=== PATIENT | male | born 1980 | race African-American/Black ===

== ENCOUNTER 2018-07-29 21:39 | Emergency (ER) | payer SELFPAY ==
[~2018-07-29] VITALS: Ht 182.9 cm; Wt 87.1 kg
[2018-07-29 21:54] VITALS: BP 86/46
--- NOTE | 2018-07-29 21:57 | ED.ADGEN ---
Adult General Chief Complaint Chief Complaint Brought by ambulance here for agitation HPI HPI 38 years old male presented to the emergency department by ambulance EMS team stated police called them because he was agitated upon arrival he was very calm and offered him to be evaluated in the emergency department he agreed to come he denies any symptoms. No headache no blurry vision no weakness no numbness no agitation answered all questions Review of Systems Review of Systems Constitutional: Denies fever or chills [] Eyes: Denies change in visual acuity, redness, or eye pain [] HENT: Denies nasal congestion or sore throat [] Respiratory: Denies cough or shortness of breath [] Cardiovascular: No additional information not addressed in HPI [] GI: Denies abdominal pain, nausea, vomiting, bloody stools or diarrhea [] : Denies dysuria or hematuria [] Musculoskeletal: Denies back pain or joint pain [] Integument: Denies rash or skin lesions [] Neurologic: Denies headache, focal weakness or sensory changes [] Endocrine: Denies polyuria or polydipsia [] All other systems were reviewed and found to be within normal limits, except as documented in this note. Allergies Allergies Allergies Coded Allergies Type Severity Reaction Last Updated Verified No Known Drug Allergies 07/29/18 No Physical Exam Physical Exam Constitutional: Well developed, well nourished, no acute distress, non-toxic appearance. [] HENT: Normocephalic, atraumatic, bilateral external ears normal, oropharynx moist, no oral exudates, nose normal. [] Eyes: PERRLA, EOMI, conjunctiva normal, no discharge. [] Neck: Normal range of motion, no tenderness, supple, no stridor. [] Cardiovascular:Heart rate regular rhythm, no murmur [] Lungs & Thorax: Bilateral breath sounds clear to auscultation [] Abdomen: Bowel sounds normal, soft, no tenderness, no masses, no pulsatile masses. [] Skin: Warm, dry, no erythema, no rash. [] Back: No tenderness, no CVA tenderness. [] Extremities: No tenderness, no cyanosis, no clubbing, ROM intact, no edema. [] Neurologic: Alert and oriented X 3, normal motor function, normal sensory function, no focal deficits noted. [] Psychologic: Affect normal, judgement normal, mood normal. [] Current Patient Data Vital Signs Vital Signs Date Time Temp Pulse Resp B/P (MAP) Pulse Ox O2 Delivery O2 Flow Rate FiO2 07/29/18 21:54 98.3 82 18 98 Room Air Lab Results Laboratory Tests Test 07/29/18 22:00 White Blood Count 5.3 x10^3/uL (4.0-11.0) Red Blood Count 4.92 x10^6/uL (4.30-5.70) Hemoglobin 13.6 g/dL (13.0-17.5) Hematocrit 41.7 % (39.0-53.0) Mean Corpuscular Volume 85 fL (79-100) Mean Corpuscular Hemoglobin 28 pg (25-35) Mean Corpuscular Hemoglobin Concent 33 g/dL (31-37) Red Cell Distribution Width 14.2 % (11.5-14.5) Platelet Count 216 x10^3/uL (140-400) Sodium Level 139 mmol/L (136-145) Potassium Level 3.7 mmol/L (3.5-5.1) Chloride Level 101 mmol/L (98-107) Carbon Dioxide Level 26 mmol/L (21-32) Anion Gap 12 (6-14) Blood Urea Nitrogen 14 mg/dL (8-26) Creatinine 1.8 mg/dL (0.7-1.3) H Estimated GFR (Cockcroft-Gault) 42.2 Glucose Level 133 mg/dL (70-99) H Calcium Level 9.0 mg/dL (8.5-10.1) Ethyl Alcohol Level < 10 mg/dL (0-10) EKG EKG [] Radiology/Procedures Radiology/Procedures [] Course & Med Decision Making Course & Med Decision Making Pertinent Labs and Imaging studies reviewed. (See chart for details) [] Final Impression Final Impression [] Problems: (1) Encounter for medical screening examination Dragon Disclaimer Dragon Disclaimer This electronic medical record was generated, in whole or in part, using a voice recognition dictation system. JUANI PIKE MD Jul 29, 2018 21:57
[2018-07-29 22:18] LABS: HEMATOCRIT 41.7 % (39.0-53.0); HEMOGLOBIN 13.6 g/dL (13.0-17.5); RED BLOOD COUNT 4.92 x10^6/uL (4.30-5.70); RED CELL DISTRIBUTION WIDTH 14.2 % (11.5-14.5); WHITE BLOOD COUNT 5.3 x10^3/uL (4.0-11.0)
[2018-07-29 22:25] LABS: CREATININE 1.8 mg/dL (0.7-1.3); GFR 42.2; POTASSIUM 3.7 mmol/L (3.5-5.1)
== END 2018-07-29 23:36 | disposition home or self-care (01) ==
LOC: ER 21:39
DX: Z00.00 Encounter for general adult medical examination without abnormal findings (principal); R45.1 Restlessness and agitation
CPT/HCPCS: 36415; 80048; 85027; 99283; G0480

== ENCOUNTER → 2018-11-02 | Outpatient (CLI) | payer OTHER ==
--- NOTE | 2018-11-02 11:15 | RAD ---
Left knee, 3 views, 11/02/2018: HISTORY: Pain and swelling, worse recently There is extensive spurring at the knee joint and at the patellofemoral articulation. No fracture or dislocation is identified. There appears to be a large joint effusion. IMPRESSION: 1. Severe hypertrophic degenerative change. 2. Large joint effusion. Electronically signed by: Chase Solo MD (11/02/2018 11:12 AM) [facility]
== END | disposition home or self-care (01) ==
LOC: PMG 09:58
PROVIDERS: ATTEND Registered Nurse
DX: M17.12 Unilateral primary osteoarthritis, left knee (principal); M89.38 Hypertrophy of bone, other site; M25.462 Effusion, left knee
CPT/HCPCS: 73562